=== PATIENT | male | born 1985 | race Caucasian/White ===

== ENCOUNTER 2017-07-08 11:21 | Emergency (ER) | payer SELFPAY | END 2017-07-08 13:00 | disposition home or self-care (01) | LOC: D.ER 11:21 | DX: L03.113 Cellulitis of right upper limb (principal); F17.200 Nicotine dependence, unspecified, uncomplicated ==

== ENCOUNTER 2017-10-21 11:34 | Emergency (ER) | payer SELFPAY | END 2017-10-21 12:34 | disposition home or self-care (01) | LOC: D.ER 11:34 | DX: J06.9 Acute upper respiratory infection, unspecified (principal); F12.90 Cannabis use, unspecified, uncomplicated ==

== ENCOUNTER 2017-11-03 12:19 | Emergency (ER) | payer SELFPAY | END 2017-11-03 14:37 | disposition home or self-care (01) | LOC: D.ER 12:19 | DX: J11.1 Influenza due to unidentified influenza virus with other respiratory manifestations (principal); R06.2 Wheezing ==

== ENCOUNTER 2018-01-18 17:04 | Emergency (ER) | payer MEDICAID | END 2018-01-18 18:25 | disposition home or self-care (01) | LOC: D.ER 17:04 | DX: M54.12 Radiculopathy, cervical region (principal); M25.512 Pain in left shoulder; F17.200 Nicotine dependence, unspecified, uncomplicated ==

== ENCOUNTER 2018-05-18 21:16 | Emergency (ER) | payer MEDICAID ==
[~2018-05-18] VITALS: Ht 188 cm; Wt 150.0 kg
[2018-05-18 21:25] VITALS: Ht 188 cm; Wt 150.0 kg
[2018-05-19] MEDS ORDERED: PREDNISONE20 MG PO (00:32)
[2018-05-19] MEDS ORDERED: TORADOL10 MG PO (00:32)
[2018-05-19 01:05] LABS: BASOPHILS 0.3 % (0-2); EOSINOPHILS 2.6 % (0-7); HEMATOCRIT 44.3 % (42.0-54.0); HEMOGLOBIN 15.1 g/dL (13.5-17.5); IMMATURE GRANULOCYTES 0.5 % (0-5); LYMPHOCYTES 27.2 % (15-50); MCH 30.9 pg (26.0-34.0); MCHC 34.1 g/dL (31.0-37.0); MCV 90.8 fL (80.0-100.0); MEAN PLATELET VOLUME 10.5 fL (7.4-10.4); MONOCYTES 7.3 % (2-11); NEUTROPHILS 62.1 % (40-80); PLATELET COUNT 184 10x3/uL (130-400); RBC 4.88 10x6/uL (4.20-6.10); RDW 13.6 % (11.5-14.5); WBC 6.6 10x3/uL (4.8-10.8)
[2018-05-19 01:14] LABS: ALKALINE PHOSPHATASE 64 U/L (46-116); ALT (SGPT) 23 U/L (10-68); BILIRUBIN - TOTAL 0.26 mg/dL (0.2-1.3); CALC OSMOLALITY 274 mosm/kg (275-300); CALCIUM 7.7 mg/dL (8.5-10.1); CARBON DIOXIDE 29.5 mmol/L (21.0-32.0); CHLORIDE - SERUM 106 mmol/L (98-107); CREATININE - SERUM 0.9 mg/dL (0.6-1.3); GLUCOSE 85 mg/dL (74-106); POTASSIUM - SERUM 3.7 mmol/L (3.5-5.1); PROTEIN - SERUM 6.7 g/dL (6.4-8.2); SODIUM 139 mmol/L (136-145); UREA NITROGEN 7 mg/dL (7-18); eGFR NON AFRICAN AMERICAN > 90 mL/min (90-120)
[2018-05-19 01:16] LABS: URIC ACID 6.7 mg/dL (2.6-7.2)
[2018-05-19 02:28] VITALS: BP 126/81
== END 2018-05-19 02:29 | disposition home or self-care (01) ==
LOC: D.ER 21:16
PROVIDERS: Family Medicine
DX: M10.072 Idiopathic gout, left ankle and foot (principal); F17.200 Nicotine dependence, unspecified, uncomplicated

== ENCOUNTER 2018-10-07 14:59 | Emergency (ER) | payer MEDICAID ==
[~2018-10-07] VITALS: Ht 188 cm; Wt 143.2 kg
[~2018-10-07 14:59] MED LIST: PREDNISONE20 MG PO; TORADOL10 MG PO
[2018-10-07 15:41] VITALS: Ht 188 cm; Wt 143.2 kg
[2018-10-07 17:19] LABS: BASOPHILS 0.3 % (0-2); EOSINOPHILS 2.6 % (0-7); HEMATOCRIT 48.3 % (42.0-54.0); HEMOGLOBIN 16.5 g/dL (13.5-17.5); IMMATURE GRANULOCYTES 0.3 % (0-5); LYMPHOCYTES 21.6 % (15-50); MCH 31.1 pg (26.0-34.0); MCHC 34.2 g/dL (31.0-37.0); MEAN PLATELET VOLUME 11.2 fL (7.4-10.4); MONOCYTES 5.6 % (2-11); NEUTROPHILS 69.6 % (40-80); PLATELET COUNT 175 10x3/uL (130-400); RBC 5.31 10x6/uL (4.20-6.10); RDW 13.8 % (11.5-14.5); WBC 7.3 10x3/uL (4.8-10.8)
[2018-10-07 17:32] LABS: ALBUMIN 3.5 g/dL (3.4-5.0); ALKALINE PHOSPHATASE 66 U/L (46-116); ALT (SGPT) 30 U/L (10-68); BILIRUBIN - TOTAL 0.53 mg/dL (0.2-1.3); CALC OSMOLALITY 278 mosm/kg (275-300); CALCIUM 8.3 mg/dL (8.5-10.1); CARBON DIOXIDE 28.7 mmol/L (21.0-32.0); CHLORIDE - SERUM 104 mmol/L (98-107); CREATININE - SERUM 0.9 mg/dL (0.6-1.3); GLUCOSE 91 mg/dL (74-106); POTASSIUM - SERUM 3.9 mmol/L (3.5-5.1); PROTEIN - SERUM 7.3 g/dL (6.4-8.2); SODIUM 141 mmol/L (136-145); UREA NITROGEN 6 mg/dL (7-18); URIC ACID 7.9 mg/dL (2.6-7.2); eGFR NON AFRICAN AMERICAN > 90 mL/min (90-120)
[2018-10-07] MEDS ORDERED: PREDNISONE50 MG PO (18:19)
[2018-10-07 18:53] VITALS: BP 142/84
== END 2018-10-07 18:54 | disposition home or self-care (01) ==
LOC: D.ER 14:59
PROVIDERS: Family Medicine
DX: M79.671 Pain in right foot (principal); R79.89 Other specified abnormal findings of blood chemistry; F17.200 Nicotine dependence, unspecified, uncomplicated

== ENCOUNTER 2018-11-17 14:51 | Emergency (ER) | payer BC ==
[~2018-11-17] VITALS: Ht 188 cm; Wt 150.0 kg
[~2018-11-17 14:51] MED LIST changes: +PREDNISONE50 MG PO
[2018-11-17 15:26] VITALS: Ht 188 cm; Wt 150.0 kg
[2018-11-17] MEDS ORDERED: INDOCIN25 MG PO (19:27)
[2018-11-17 19:43] VITALS: BP 120/75
== END 2018-11-17 19:51 | disposition home or self-care (01) ==
LOC: D.ER 14:51
DX: M10.071 Idiopathic gout, right ankle and foot (principal); F17.200 Nicotine dependence, unspecified, uncomplicated

== ENCOUNTER 2019-12-16 19:25 | Emergency (ER) | payer SELFPAY ==
[~2019-12-16] VITALS: Ht 188 cm; Wt 140.9 kg
[~2019-12-16 19:25] MED LIST changes: +INDOCIN25 MG PO
[2019-12-16 19:35] VITALS: Ht 188 cm; Wt 140.9 kg
[2019-12-16] MEDS ORDERED: PENICILLIN V P500 MG PO (19:50)
[2019-12-16 20:15] VITALS: BP 148/74
== END 2019-12-16 19:58 | disposition home or self-care (01) ==
LOC: D.ER 19:25
DX: K08.89 Other specified disorders of teeth and supporting structures (principal); K02.9 Dental caries, unspecified; K76.0 Fatty (change of) liver, not elsewhere classified; Z72.0 Tobacco use

== ENCOUNTER 2020-12-17 17:51 | Emergency (ER) | payer OTHER ==
[~2020-12-17] VITALS: Ht 188 cm; Wt 159.1 kg
[~2020-12-17 17:51] MED LIST changes: +NAPROSYN500 MG PO; +PENICILLIN V P500 MG PO
[2020-12-17 18:07] VITALS: BP 158/99; Ht 188 cm; Wt 159.1 kg
[2020-12-17 18:34] LABS: BASOPHILS 0.6 % (0-2); EOSINOPHILS 5.3 % (0-7); HEMATOCRIT 50.2 % (42.0-54.0); HEMOGLOBIN 16.9 g/dL (13.5-17.5); IMMATURE GRANULOCYTES 0.3 % (0-5); LYMPHOCYTE ABS# 1.14 10x3/uL (1.32-3.57); LYMPHOCYTES 33.6 % (15-50); MCH 31.2 pg (26.0-34.0); MCHC 33.7 g/dL (31.0-37.0); MCV 92.8 fL (80.0-100.0); MEAN PLATELET VOLUME 9.8 fL (7.4-10.4); MONOCYTES 6.8 % (2-11); NEUTROPHIL ABS# 1.81 10x3/uL (1.78-5.38); NEUTROPHILS 53.4 % (40-80); PLATELET COUNT 155 10x3/uL (130-400); RBC 5.41 10x6/uL (4.20-6.10); RDW 14.3 % (11.5-14.5); WBC 3.4 10x3/uL (4.8-10.8)
[2020-12-17 18:41] LABS: CALC OSMOLALITY 279 mosm/kg (275-300); CALCIUM 8.1 mg/dL (8.5-10.1); CARBON DIOXIDE 27.9 mmol/L (21.0-32.0); CHLORIDE - SERUM 106 mmol/L (98-107); GLUCOSE 136 mg/dL (74-106); POTASSIUM - SERUM 3.9 mmol/L (3.5-5.1); SODIUM 140 mmol/L (136-145); UREA NITROGEN 9 mg/dL (7-18); eGFR NON AFRICAN AMERICAN 90 mL/min (90-120)
[2020-12-17 18:47] LABS: ALBUMIN 3.2 g/dL (3.4-5.0); ALKALINE PHOSPHATASE 63 U/L (30-120); ALT (SGPT) 38 U/L (10-68); BILIRUBIN - TOTAL 0.39 mg/dL (0.2-1.3); PROTEIN - SERUM 6.9 g/dL (6.4-8.2)
== END 2020-12-17 19:08 | disposition home or self-care (01) ==
LOC: D.ER 17:51
PROVIDERS: Family Medicine
DX: R09.89 Other specified symptoms and signs involving the circulatory and respiratory systems (principal); R05 Cough